=== PATIENT | male | born 1965 | race American Indian/Alaskan Native ===

== ENCOUNTER 2019-07-30 07:19 | Day surgery (SDC) | payer OTHER ==
[~2019-07-30 07:19] MED LIST: ceFAZolin/Water 2 GM/20 ML 2 GM/20 ML SYRINGE IV NR
[2019-07-30] MEDS ORDERED: SODIUM CHLORIDE 0.9% 250ML 250 ML ONE (07:36)
[2019-07-30] MEDS ORDERED: HEPARIN 10,000 UNITS/10 ML VIAL ONE (07:36)
[2019-07-30] MEDS ORDERED: THROMBIN (RECOMBINANT) 5,000 UNIT VIAL TP ONE ×2 (07:37→09:42)
[2019-07-30] MEDS ORDERED: GELATIN SPONGE SIZE 100 TP ONE (07:37)
[2019-07-30] MEDS ORDERED: PROTAMINE SULFATE 50 MG/5 ML INJ ONE (07:37)
[2019-07-30] MEDS ORDERED: fentaNYL 100 MCG/2 ML INJ ONE ×2 (07:59→09:40)
[2019-07-30] MEDS ORDERED: LIDOCAINE MPF (2%) 20 MG/1 ML VIAL 5 ML ONE (07:59)
[2019-07-30] MEDS ORDERED: ONDANSETRON 4 MG/2 ML INJ ONE (07:59)
[2019-07-30] MEDS ORDERED: PROPOFOL 200 MG/20 ML VIAL IV ONE (08:00)
[2019-07-30] MEDS ORDERED: SODIUM CHLORIDE 0.9% 1000 ML 1,000 ML ONE ×2 (08:03→08:13)
[2019-07-30] MEDS ORDERED: fentaNYL 100 MCG/2 ML INJ IV PRN (08:26)
--- NOTE | 2019-07-30 08:26 | Anesthesia Consultation ---
Anesthesia Consult and Med Hx Date of service: 07/30/19 - Airway Anesthetic Teeth Evaluation: Good ROM Head & Neck: Adequate Mental/Hyoid Distance: Inadequate Mallampati Class: Class IV Intubation Access Assessment: Possibly Difficult - Pulmonary Exam CTA: Yes - Cardiac Exam Cardiac Exam: RRR - Pre-Operative Health Status ASA Pre-Surgery Classification: ASA3 Proposed Anesthetic Plan: General - Pulmonary Hx Smoking: Yes (1/2PPD) Hx Respiratory Symptoms: No Hx Sleep Apnea: Yes (compliant with CPAP) - Cardiovascular System Hx Hypertension: Yes (took amlodipine this morning) Hx Heart Attack/AMI: No Hx Percutaneous Transluminal Coronary Angioplasty (PTCA): No Hx Cardia Arrhythmia: No - Central Nervous System CVA: No - Gastrointestinal Hx Gastroesophageal Reflux Disease: No - Endocrine Hx End Stage Renal Disease: Yes (last HD 07/27/19 (HD M & F, still makes urine)) Hx Liver Disease: No Hx Insulin Dependent Diabetes: No Hx Non-Insulin Dependent Diabetes: No Hx Thyroid Disease: No - Hematic Hx Anemia: Yes (Hb 12.6) - Other Systems Hx Obesity: Yes (BMI 35) - Additional Comments Anesthesia Medical History Comments: No hx anesthetic complications.
--- NOTE | 2019-07-30 08:26 | Anesthesia Day of Surgery ---
Anesthesia Day of Surgery - Day of Surgery Patient Examined: Yes Patient H&P Reviewed: Yes Patient is NPO: Yes
[2019-07-30] MEDS ORDERED: SODIUM CHLORIDE 0.9% 1000 ML 1,000 ML IV SCH (08:30)
[2019-07-30] MEDS ORDERED: HEPARIN 10,000 UNITS/10 ML VIAL IV ONE (09:41)
[2019-07-30] MEDS ORDERED: SODIUM CHLORIDE 0.9% IRR 1,500 ML BOTTLE IR ONE (09:42)
[2019-07-30] MEDS ORDERED: SODIUM CHLORIDE 0.9% 250 ML IVPB IV ONE (09:42)
--- NOTE | 2019-07-30 10:58 | Post Operative Note ---
Pre-op diagnosis: ESRD Post-op diagnosis: same Procedure: Left Arm Brachiocephalic AV Fistula Creation Anesthesia: GETA Surgeon: JOE ÁLVAREZ Estimated blood loss: minimal Pathology: none Condition: stable Disposition: PACU
[2019-07-30] MEDS ORDERED: oxyCODONE /ACETAMINOPHEN 5-325MG TAB PO PRN ×2 (10:59→11:48)
--- NOTE | 2019-07-30 11:01 | Short Stay Summary ---
Short Stay Documentation Date of service: 07/30/19 - History H&P: obtained from office Past Medical History: ESRD - Allergies and Medications Current Medications: Allergies shellfish derived Adverse Reaction (Severe, Verified 07/24/19 11:33) Swelling IODINE ON SKIN OK Home Medications Medication Instructions Recorded Confirmed Last Taken Type Warfarin 2.5 mg PO DAILY 07/24/19 07/30/19 07/21/19 09:00 History amLODIPine 5 mg PO DAILY 07/24/19 07/30/19 07/30/19 05:00 History Active Medications Fentanyl (Sublimaze) 50 mcg IV Q5MIN PRN PRN Reason: Pain , Severe (7-10) Stop: 07/30/19 23:00 Cefazolin Sodium (Ancef/Sterile Water 2 Gm/20 Ml) 2 gm in 20 mls @ 80 mls/hr IV PREOP NR; Protocol Stop: 07/30/19 23:59 Sodium Chloride (Nacl 0.9% 1000 Ml) 1,000 mls @ 42 mls/hr IV DIRECT ARLETTE Last Admin: 07/30/19 08:30 Dose: 42 mls/hr Documented by: - Physical exam General appearance: no acute distress Heart: Regular rate Extremities: no ischemia - Hospital course Hospital course: the patient was taken to the operating room and had a left arm av fistula creation performed. please refer to the operative note concerning details of the procedure. the patient tolerated the procedure well and was discharged home in stable condition. - Disposition Condition at discharge: Stable Disposition: DC-01 TO HOME OR SELFCARE - Discharge Diagnoses (1) ESRD (end stage renal disease) on dialysis Status: Acute Short Stay Discharge Plan Follow up with: KELTON CARMEN MD [Primary Care Provider] - 7 Days
[2019-07-30] MEDS ORDERED: dexAMETHasone 20 MG/5 ML VIAL ONE (11:16)
--- NOTE | 2019-07-30 11:24 | Operative Report ---
STAFF SURGEON: Dr. Donato Quach. PREOPERATIVE DIAGNOSIS: End-stage renal disease. POSTOPERATIVE DIAGNOSIS: End-stage renal disease. PROCEDURE PERFORMED: Left arm brachiocephalic AV fistula creation. COMPLICATIONS: None. ESTIMATED BLOOD LOSS: 10 mL. ANESTHESIA: General. INDICATIONS FOR PROCEDURE: This is a 53-year-old gentleman with end-stage renal disease, on hemodialysis via right IJ PermCath, who in need of a dialysis access creation. The patient had a vein mapping that demonstrated a suitable cephalic vein in the upper arm AV fistula creation and therefore, the patient was scheduled to undergo brachiocephalic AV fistula creation. The patient was explained the risks, benefits and alternatives of procedure, expressed understanding and wished to proceed. DESCRIPTION OF PROCEDURE: After appropriate consent was obtained, the patient was brought back to the operating room and placed on the operating table in supine position with arm extended. The patient was given appropriate medication for general anesthesia and had an LMA placed without difficulty. Left arm was prepped and draped in a sterile fashion with ChloraPrep. Appropriate preoperative antibiotics were administered, and appropriate time-out performed indicating the correct patient, procedure, and site of procedure. We then began the operation by making a transverse incision just below the antecubital fossa. This was carried through subcutaneous tissue with a combination of blunt dissection and electrocautery. The cephalic vein was identified, mobilized in its entirety and the incision. This was thought to be suitable for venous outflow. The branches were ligated and transected and then proceeded to continue our dissection through subcutaneous tissue and the bicipital aponeurosis medially and to expose the brachial artery. Again, this was exposed in its entirety throughout the incision and found to be suitable size for arterial inflow. The patient was given 5000 units of unfractionated heparin. After appropriate timeout elapsed, we then proceeded to place vascular clamps on the brachial artery, both proximally and distally. The cephalic vein was transected in the distal aspect of the incision and ligated with 3-0 silk suture. We then proceeded to flush the vein with heparinized saline, which flowed nicely. A bulldog clamp was then placed and we then proceeded to make an arteriotomy with an 11 blade and extended with Madison scissors and then end-to-side anastomosis was performed with a running 6-0 Prolene suture. Once complete flow was reestablished through the fistula for several beats and then the distal clamp was removed, I then proceeded to confirm adequate flow through the fistula with a Doppler. Once we were satisfied with the flow, and then we looked to obtain hemostasis along our suture line with hemostatic agents. We then proceeded to close the wound with a deep subcutaneous layer with interrupted 3-0 PDS and the skin was approximated with running 4-0 Monocryl. Dermabond dressing was placed. The patient tolerated the procedure well, emerged from the general anesthesia, had LMA removed, and was sent to recovery in stable condition. JOB# [id number] CIELO/MICHAEL
[2019-07-30 12:10] VITALS: BP 152/97
--- NOTE | 2019-07-30 15:23 | Post Anesthesia Evaluation ---
- Post Anesthesia Evaluation Patient Participated: Yes Airway Patent: Yes Stable Respiratory Function: Yes Nausea/Vomiting: No Temp > 96.8F: Yes Pain Manageable: Yes Adequeate Hydration: Yes Anesthesia Complications: No
== END 2019-07-30 12:20 | disposition home or self-care (01) ==
LOC: OR 07:19
PROVIDERS: ATTEND Surgery Vascular Surgery
DX: I13.2 Hypertensive heart and chronic kidney disease with heart failure and with stage 5 chronic kidney disease, or end stage renal disease (principal); N18.6 End stage renal disease; I50.9 Heart failure, unspecified; G47.30 Sleep apnea, unspecified; E66.9 Obesity, unspecified; F17.210 Nicotine dependence, cigarettes, uncomplicated; Z68.35 Body mass index [BMI] 35.0-35.9, adult; Z99.2 Dependence on renal dialysis; Z90.13 Acquired absence of bilateral breasts and nipples; Z79.01 Long term (current) use of anticoagulants; Z79.899 Other long term (current) drug therapy; Z98.890 Other specified postprocedural states; Z86.2 Personal history of diseases of the blood and blood-forming organs and certain disorders involving the immune mechanism
CPT/HCPCS: 36821; 82803; 82962; A4649; J0690; J1100; J1644; J2405; J2704; J3010; J7030; J7050; J2720

== ENCOUNTER 2019-11-19 06:57 | Day surgery (SDC) | payer OTHER ==
[~2019-11-19 06:57] MED LIST changes: +BACTERIOSTATIC SODIUM CHLORIDE 0.9% 30 ML VIAL INFILTRATI ONE; +GELATIN SPONGE SIZE 100 TP ONE; +HEPARIN 10,000 UNITS/10 ML VIAL IR ONE; +SODIUM CHLORIDE 0.9% 1000 ML 1,000 ML IV SCH; +SODIUM CHLORIDE 0.9% 250 ML IVPB IV ONE; +SODIUM CHLORIDE 0.9% IRR 1,500 ML BOTTLE IR ONE; +THROMBIN (RECOMBINANT) 5,000 UNIT VIAL TP ONE
[2019-11-19] MEDS ORDERED: LIDOCAINE (1%) 10 MG/1 ML VIAL 20 ML MDV ONE (07:37)
[2019-11-19] MEDS ORDERED: HEPARIN 10,000 UNITS/10 ML VIAL ONE (07:37)
[2019-11-19] MEDS ORDERED: PROTAMINE SULFATE 50 MG/5 ML INJ ONE (07:37)
[2019-11-19] MEDS ORDERED: THROMBIN (RECOMBINANT) 5,000 UNIT VIAL TP ONE ×2 (07:38→11:22)
[2019-11-19] MEDS ORDERED: SODIUM CHLORIDE 0.9% 250ML 250 ML ONE (07:38)
[2019-11-19] MEDS ORDERED: GELATIN SPONGE SIZE 100 TP ONE ×2 (07:38→11:22)
--- NOTE | 2019-11-19 07:49 | Anesthesia Day of Surgery ---
Anesthesia Day of Surgery - Day of Surgery Patient Examined: Yes Patient H&P Reviewed: Yes Patient is NPO: Yes
--- NOTE | 2019-11-19 07:49 | Anesthesia Consultation ---
Anesthesia Consult and Med Hx - Airway Anesthetic Teeth Evaluation: Poor ROM Head & Neck: Adequate Mallampati Class: Class III Intubation Access Assessment: Probably Good - Pulmonary Exam CTA: Yes - Cardiac Exam Cardiac Exam: RRR - Pre-Operative Health Status ASA Pre-Surgery Classification: ASA3 Proposed Anesthetic Plan: General Nerve Block: Left Brachial plexus/interscalene - Pulmonary Hx Smoking: Yes Hx Respiratory Symptoms: No Hx Sleep Apnea: Yes - Cardiovascular System Hx Hypertension: Yes Hx Cardia Arrhythmia: No - Central Nervous System Hx Psychiatric Problems: No - Gastrointestinal Hx Gastroesophageal Reflux Disease: No - Endocrine Hx Renal Disease: Yes Hx End Stage Renal Disease: Yes (Dialysis MWF) Hx Insulin Dependent Diabetes: No Hx Non-Insulin Dependent Diabetes: No Hx Thyroid Disease: No - Hematic Hx Anemia: Yes - Other Systems Hx Substance Use: Yes (Marijuana) Hx Cancer: No
[2019-11-19 07:58] LABS: Hematocrit 29.7 % (35.5-45.6); Hemoglobin 9.6 gm/dl (11.8-15.2); Mean Corpuscular HGB Conc 32 % (32-34); Mean Corpuscular Volume 88 fl (84-94); Platelet Count 251 K/mm3 (140-440); Red Blood Count 3.37 M/mm3 (3.65-5.03); Red Cell Distribution Width 17.3 % (13.2-15.2)
[2019-11-19 08:05] LABS: Partial Thromboplastin Time 31.3 Sec. (24.2-36.6)
[2019-11-19] MEDS ORDERED: GLYCOPYRROLATE 0.4 MG/2 ML INJ ONE (08:06)
[2019-11-19] MEDS ORDERED: PHENYLEPHRINE/NS 1,000 MCG/10 ML SYRINGE (OR USE) IV ONE (08:06)
[2019-11-19] MEDS ORDERED: ONDANSETRON 4 MG/2 ML INJ ONE (08:06)
[2019-11-19] MEDS ORDERED: LIDOCAINE MPF (2%) 20 MG/1 ML VIAL 5 ML ONE (08:06)
[2019-11-19] MEDS ORDERED: propofoL 200 MG/20 ML VIAL IV ONE (08:06)
[2019-11-19] MEDS ORDERED: fentaNYL 100 MCG/2 ML INJ ONE ×3 (08:06→11:18)
[2019-11-19] MEDS ORDERED: fentaNYL 100 MCG/2 ML INJ IV NR (08:11)
[2019-11-19] MEDS ORDERED: ROPIVACAINE/PF (0.5%) 5 MG/1 ML 30 ML VIAL ONE (08:15)
[2019-11-19] MEDS ORDERED: SUCCINYLCHOLINE CHLORIDE 200 MG/10 ML INJ MDV ONE (08:30)
--- NOTE | 2019-11-19 08:46 | Event Note ---
Date: 11/19/19 Block Note Attempted interscalene on left side. After time out, the area was prepped and draped in the usual fashion. After multiple attempts at visualization and stimulation, unable to elicit a twitch. Abandoned procedure. Versed 2 mg and Fentanyl 100 mcg given.
[2019-11-19] MEDS ORDERED: MIDAZOLAM 2 MG/2 ML INJ IV NR (09:00)
[2019-11-19] MEDS ORDERED: SODIUM CHLORIDE 0.9% IRR 1,500 ML BOTTLE IR ONE (10:03)
[2019-11-19] MEDS ORDERED: SODIUM CHLORIDE 0.9% 250 ML IVPB IV ONE (10:41)
[2019-11-19] MEDS ORDERED: HEPARIN 10,000 UNITS/10 ML VIAL IR ONE (10:41)
--- NOTE | 2019-11-19 11:30 | Post Operative Note ---
Date of procedure: 11/19/19 Pre-op diagnosis: ESRD Post-op diagnosis: same Procedure: Left Arm Cephalic Vein Transposition Anesthesia: GETA Surgeon: JOE ÁLVAREZ Estimated blood loss: other (25ml) Pathology: none Condition: stable Disposition: PACU
--- NOTE | 2019-11-19 11:32 | Short Stay Summary ---
Short Stay Documentation Date of service: 11/19/19 - History H&P: obtained from office Past Medical History: ESRD, hypertension - Allergies and Medications Current Medications: Allergies shellfish derived Adverse Reaction (Severe, Verified 11/17/19 11:47) Swelling IODINE ON SKIN OK Home Medications Medication Instructions Recorded Confirmed Last Taken Type Warfarin 2.5 mg PO DAILY 07/24/19 11/19/19 11/18/19 History amLODIPine 5 mg PO DAILY 07/24/19 11/19/19 11/19/19 05:30 History allopurinoL [Zyloprim] 100 mg PO PRN PRN 11/19/19 11/19/19 Unknown History Active Medications Fentanyl (Sublimaze) 100 mcg IV ONCE NR Stop: 11/19/19 12:00 Last Admin: 11/19/19 08:19 Dose: 100 mcg Documented by: Cefazolin Sodium (Ancef/Sterile Water 2 Gm/20 Ml) 2 gm in 20 mls @ 80 mls/hr IV PREOP NR; Protocol Stop: 11/19/19 23:59 Sodium Chloride (Nacl 0.9% 1000 Ml) 1,000 mls @ 42 mls/hr IV DIRECT ARLETTE Last Admin: 11/19/19 07:30 Dose: 42 mls/hr Documented by: Midazolam HCl (Versed) 2 mg IV PREOP NR Stop: 11/19/19 23:59 Last Admin: 11/19/19 08:18 Dose: 2 mg Documented by: - Physical exam General appearance: no acute distress Lungs: Normal air movement Heart: Regular rate Extremities: no ischemia - Hospital course Hospital course: the patient was taken to the operating room and had a left arm av fistula revision performed. please refer to the operative note concerning details of the procedure. the patient tolerated the procedure well and was discharged home in stable condition. - Disposition Condition at discharge: Stable Disposition: DC-01 TO HOME OR SELFCARE - Discharge Diagnoses (1) ESRD (end stage renal disease) on dialysis Status: Acute Short Stay Discharge Plan Follow up with: KENNY GALLAGHER MD [Primary Care Provider] - 7 Days
[2019-11-19] MEDS ORDERED: HYDROmorphone 1 MG/1 ML INJ ONE (11:51)
[2019-11-19] MEDS ORDERED: HYDROmorphone 1 MG/1 ML INJ IV PRN (11:53)
[2019-11-19] MEDS ORDERED: oxyCODONE /ACETAMINOPHEN 5-325MG TAB PO PRN (12:00)
--- NOTE | 2019-11-19 12:29 | Operative Report ---
STAFF SURGEON: Donato Quach MD PREOPERATIVE DIAGNOSIS: End-stage renal disease. POSTOPERATIVE DIAGNOSIS: End-stage renal disease. PROCEDURE PERFORMED: Left arm cephalic vein transposition. COMPLICATIONS: None. ESTIMATED BLOOD LOSS: 25 mL. ANESTHESIA: General. INDICATIONS FOR PROCEDURE: This is a 54-year-old gentleman with end-stage renal disease, on hemodialysis via left IJ PermCath who has recently undergone the AV fistula creation on the left arm ____ properly and on attempted cannulation was infiltrated. The patient had diagnostic imaging that demonstrated a widely patent AV fistula. It was felt that the patient would benefit from a cephalic vein transposition to assist with cannulation. The patient was explained the risks, benefits and alternatives of procedure, expressed understanding and wished to proceed. DESCRIPTION OF PROCEDURE: After appropriate consent was obtained, the patient was brought back to the operating room and placed on the operating table in supine position with the left arm extended. The patient was given appropriate medication for general anesthesia, was intubated without difficulty. Left arm was prepped and draped in the usual sterile fashion with ChloraPrep. Appropriate preoperative antibiotics were administered and appropriate time-out performed indicating correct patient, procedure, and site of procedure. I then began the operation by making a longitudinal incision over the AV fistula starting at the antecubital fossa and extending towards the shoulder. This was carried through subcutaneous tissue with a combination of blunt dissection and electrocautery. The AV fistula was mobilized in its entirety in the incision of the wound. All the branches were isolated and ligated with silk suture and transected. Once the cephalic vein was completely mobilized, the anterior surface was marked. Vascular clamps were placed on the cephalic vein, both proximally and distally. This was then transected near the antecubital fossa. The vein was then flushed with heparinized saline. We then proceeded to create a subcutaneous tunnel medial to our incision using a Ivette clamp and brought through the AV fistula with care to avoid any twisting or kinking. The patient was given 3000 units of unfractionated heparin. We then proceeded to perform the end-to-end anastomosis with a running 6-0 Prolene suture. Once complete flow was reestablished through the AV fistula, we had a nice palpable thrill. We looked to obtain hemostasis along the suture line, which was obtained with hemostatic agents. Once we were satisfied with hemostasis, we then proceeded to close the wound by approximating the deep subcutaneous layer with interrupted 3-0 PDS and skin was approximated with jonathan. Appropriate dressing was placed. The patient tolerated the procedure well, emerged from the general anesthesia, was extubated in the operating room and sent to recovery in stable condition. All the sponges, instrument and needle counts were correct at completion of the operation. JOB# [id number] VCN/NTS
[2019-11-19 13:27] VITALS: BP 142/94
== END 2019-11-19 06:58 | disposition home or self-care (01) ==
LOC: OR 06:57
PROVIDERS: ATTEND Surgery Vascular Surgery
DX: I13.2 Hypertensive heart and chronic kidney disease with heart failure and with stage 5 chronic kidney disease, or end stage renal disease (principal); N18.6 End stage renal disease; I50.9 Heart failure, unspecified; G47.30 Sleep apnea, unspecified; Z99.2 Dependence on renal dialysis; Z98.890 Other specified postprocedural states; Z86.2 Personal history of diseases of the blood and blood-forming organs and certain disorders involving the immune mechanism
CPT/HCPCS: 36415; 80048; 85027; 85610; 85730; A4649; J0330; J0690; J1170; J1644; J2250; J2370; J2405; J2704; J2720; J2795; J3010; J7030; J7050